=== PATIENT | female | born 1985 ===

== ENCOUNTER 2017-06-20 10:49 | Emergency (ER) | payer OTHER ==
[2017-06-20 11:02] VITALS: TEMP 97.8; O2SAT 97
[2017-06-20] MEDS ORDERED: Sodium Chloride 0.9% 1,000 ML IV STA (11:28)
[2017-06-20 12:09] LABS: URINE BILIRUBIN NEGATIVE (NEGATIVE); URINE BLOOD MODERATE (NEGATIVE); URINE GLUCOSE (UA) NEGATIVE (NEGATIVE); URINE KETONE NEGATIVE (NEGATIVE); URINE LEUKOCYTE ESTERASE NEGATIVE Leu/uL (NEGATIVE); URINE PROTEIN NEGATIVE mg/dL (<30 mg/dL); URINE UROBILINOGEN 0.2 E.U./dL (<1 E.U./dL)
[2017-06-20 12:10] LABS: BASO # 0.01 K/mm3 (0.0-2.0); BASO % 0.1 % (0.0-3.0); EOS # 0.1 (0.0-0.7); EOS % 0.7 % (1.5-5.0); GRAN # 7.09 (1.4-6.5); GRAN % 67.6 % (50.0-68.0); HEMATOCRIT 40.9 % (36.0-48.0); LYMPH # 2.7 (1.2-3.4); MEAN CELL VOLUME 89.7 fl (80.0-105.0); MEAN CORPUSCULAR HEMOGLOBIN 30.3 pg (25.0-35.0); MEAN CORPUSCULAR HGB CONC 33.7 g/dl (31.0-37.0); MEAN PLATELET VOLUME 10.8 fl (7.0-11.0); MONO # 0.6 (0.1-0.6); MONO % 5.6 % (1.0-6.0); RED CELL DISTRIBUTION WIDTH 13.5 % (11.5-14.5); WHITE BLOOD COUNT 10.5 10^3/ul (4.5-11.0)
[2017-06-20 12:11] LABS: URINE APPEARANCE SLIGHT-CLOUDY (CLEAR); URINE COLOR YELLOW (YELLOW)
[2017-06-20 12:16] LABS: URINE BACTERIA MOD (NEG); URINE EPITHELIAL CELLS MANY /hpf (0-5); URINE RBC 0 - 2 /hpf (0-2); URINE WBC 0 - 2 /hpf (0-6)
[2017-06-20 12:17] LABS: INR 1.03 (0.93-1.08); PARTIAL THROMBOPLASTIN TIME 29.7 Seconds (25.1-36.5)
[2017-06-20 12:29] LABS: ALB/GLOB RATIO 1.4 (1.1-1.8); ALKALINE PHOSPHATASE 56 U/L (38-126); ALT/SGPT 32 U/L (7-56); AST/SGOT 22 U/L (14-36); BILIRUBIN,TOTAL 0.5 mg/dL (0.2-1.3); BLOOD UREA NITROGEN 9 mg/dL (7-21); CALCIUM 10.1 mg/dL (8.4-10.5); CARBON DIOXIDE 22 mmol/L (21-33); CHLORIDE 104 mmol/L (98-107); GFR AFRICAN-AMERICAN > 60; GLUCOSE,RANDOM 120 mg/dL (70-110); LIPASE 87 U/L (23-300); POTASSIUM 3.7 mmol/L (3.6-5.0); SODIUM 137 mmol/L (132-148)
--- NOTE | 2017-06-20 12:35 | ED PDOC ---
Arrival/HPI - General Historian: Patient - History of Present Illness Time/Duration: 24 hours Symptom Onset: Sudden Symptom Course: Unchanged Activities at Onset: Rest, Light Context: Home <Javi Vicente - Last Filed: 06/20/17 19:49> <Sunitatremayne Rell - Last Filed: 06/20/17 20:57> - General Chief Complaint: Female Genitourinary Time Seen by Provider: 06/20/17 11:05 - History of Present Illness Narrative History of Present Illness (Text): 06/20/17 12:35 Ms. Ponce is a 32 year old at 7w0d gestation (JENNIFER of 02/06/18 by [facility]DL[facility] of 05/02/17) with no significant past medical history who presents to the [facility] ED with a chief complaint of vaginal bleeding since yesterday. Patient reports that after she went to the bathroom yesterday, she noticed dark red to brown blood on the paper after she wiped and then had a similar episode later yesterday afternoon with red to pink blood on the paper. She also reports that she passed a blood clot measuring approximately 2 cm. She denies any non-bloody vaginal discharge, malodorous discharge, vaginal itching, abdominal cramping, LOF, pain with urination, hematuria, hematochezia, recent sexual intercourse but does endorse urinary frequency. Patient also denies fever, chills, headache , changes in her vision, sore throat, chest pain, SOB, cough, abdominal pain, N/ V/D/C, rashes or any numbness/tingling/weakness. OB History: First Gestation: Miscarriage at 5 weeks gestation Current Gestation: details in HPI Patient has scheduled appointment at [facility] next week for her initial OB visit [employer] History: Triad: 12/regular/4 days Denies history of fibroids, ovarian cysts, history of abnormal pap smears or any personal or family history of breast/uterine/ovarian/vaginal/cervical malignancies (Jvai Vicente) Past Medical History - Provider Review Nursing Documentation Reviewed: Yes - Travel History Have you recently traveled outside [place] w/in the past 3 mons?: No - Past History Past History: No Previous - Infectious Disease Hx of Infectious Diseases: None - Tetanus Immunization Tetanus Immunization: Unknown - Reproductive Menopause: No - Past Medical History Past Medical History: No Previous - Psychiatric Hx Substance Use: No - Surgical History Hx Tonsillectomy: Yes Other/Comment: hernia repair x2 <Javi Vicente - Last Filed: 06/20/17 19:49> Family/Social History - Physician Review Nursing Documentation Reviewed: Yes Family/Social History: No Known Family HX Smoking Status: Never Smoked Hx Alcohol Use: No Hx Substance Use: No Hx Substance Use Treatment: No <Javi Vicente - Last Filed: 06/20/17 19:49> Allergies/Home Meds <Javi Vicente - Last Filed: 06/20/17 19:49> <SunitaRell casper DO - Last Filed: 06/20/17 20:57> Allergies/Adverse Reactions: Allergies No Known Allergies Allergy (Verified 06/20/17 11:02) Review of Systems - Physician Review All systems were reviewed & negative as marked: Yes - Review of Systems Constitutional: Normal. absent: Fevers, Night Sweats Eyes: Normal. absent: Vision Changes ENT: Normal Respiratory: Normal. absent: SOB, Cough Cardiovascular: Normal. absent: Chest Pain, Palpitations Gastrointestinal: Normal. absent: Abdominal Pain, Constipation, Diarrhea, Nausea, Vomiting, Hematochezia Genitourinary Female: Frequency, Vaginal Bleeding (As per HPI). absent: Normal , Dysuria, Hematuria, Vaginal Discharge Musculoskeletal: Normal. absent: Back Pain, Neck Pain Skin: Normal. absent: Rash Neurological: Normal. absent: Headache, Dizziness Endocrine: Normal Hemo/Lymphatic: Normal Psychiatric: Normal <Javi Vicente - Last Filed: 06/20/17 19:49> Physical Exam Vital Signs Reviewed: Yes Temperature: Afebrile Blood Pressure: Normal Pulse: Regular Respiratory Rate: Normal Appearance: Positive for: Well-Appearing, Non-Toxic, Comfortable Pain Distress: None Mental Status: Positive for: Alert and Oriented X 3 - Systems Exam Head: Present: Atraumatic, Normocephalic Pupils: Present: PERRL Extroacular Muscles: Present: EOMI Conjunctiva: Present: Normal Mouth: Present: Moist Mucous Membranes Neck: Present: Normal Range of Motion Respiratory/Chest: Present: Clear to Auscultation, Good Air Exchange. No: Respiratory Distress, Accessory Muscle Use Cardiovascular: Present: Regular Rate and Rhythm, Normal S1, S2, Peripheal Pulses Present. No: Murmurs, Irregular Rhythm, Tachycardic, Bradycardic Abdomen: Present: Normal Bowel Sounds. No: Tenderness, Distention, Peritoneal Signs Back: Present: Normal Inspection. No: CVA Tenderness, Midline Tenderness, Paraspinal Tenderness Upper Extremity: Present: Normal Inspection. No: Cyanosis, Edema Lower Extremity: Present: Normal Inspection. No: Edema Neurological: Present: GCS=15, CN II-XII Intact, Speech Normal Skin: Present: Warm, Dry, Normal Color. No: Rashes Psychiatric: Present: Alert, Oriented x 3, Normal Insight, Normal Concentration <Javi Vicente - Last Filed: 06/20/17 19:49> Vital Signs Temp Pulse Resp BP Pulse Ox 06/20/17 12:50 75 18 113/69 97 06/20/17 10:56 97.8 F 80 16 115/73 97 Medical Decision Making - Lab Interpretations I have reviewed the lab results: Yes Interpretation: All labs normal - RAD Interpretation Phlebotomy Coordinator: Radiologist <Javi Vicente - Last Filed: 06/20/17 19:49> <Rell Orona DO - Last Filed: 06/20/17 20:57> ED Course and Treatment: 06/20/17 12:48 Impression: 32 year old at 7w0d gestation ([facility]ENNIFER [facility] 02/06/18 [facility]) with no significant past medical history who presents to the [facility] ED with a chief complaint of vaginal bleeding since yesterday Plan: -CBC, Coagulation studies, UA -OB US -Reassess and disposition Prior Visits: No previous visits (Javi Vicente) 06/20/17 12:52 Patient Seen With Resident: In agreement with resident note which contains more details about the patient. Patient was seen and evaluated with resident. Came up with plan and treatment together. A 32 year old female who is 7 weeks with no significant past medical history, presents to the emergency department for vaginal bleeding. The patient's treatment plan includes urinalysis, transvaginal ultrasound, POC urine test, and IV fluids. Patient has an appointment with her OBGYN and I encourage the patient to follow through with her appointment. (Rell Orona DO) - Lab Interpretations Lab Results: 06/20/17 11:45 06/20/17 11:45 Lab Results 06/20/17 12:25: Blood Type Confirm O POSITIVE 06/20/17 11:45: Blood Type O POSITIVE, Antibody Screen Negative, BBK History Checked No verified bt 06/20/17 11:45: Beta HCG, Quant [id number] H 06/20/17 11:45: Sodium 137, Potassium 3.7, Chloride 104, Carbon Dioxide 22, Anion Gap 15, BUN 9, Creatinine 0.5 L, Est GFR ( Amer) > 60, Est GFR (Non -Af Amer) > 60, Random Glucose 120 H, Calcium 10.1, Total Bilirubin 0.5, AST 22 , ALT 32, Alkaline Phosphatase 56, Total Protein 8.0, Albumin 4.6, Globulin 3.4 , Albumin/Globulin Ratio 1.4, Lipase 87 06/20/17 11:45: Urine Color Yellow, Urine Appearance Slight-cloudy, Urine pH 7.0 , Ur Specific [place] 1.015, Urine Protein Negative, Urine Glucose (UA) Negative , Urine Ketones Negative, Urine Blood Moderate H, Urine Nitrate Negative, Urine Bilirubin Negative, Urine Urobilinogen 0.2, Ur Leukocyte Esterase Negative, Urine RBC 0 - 2, Urine WBC 0 - 2, Ur Epithelial Cells Many, Urine Bacteria Mod 06/20/17 11:45: PT 11.3, INR 1.03, APTT 29.7 06/20/17 11:45: WBC 10.5, RBC 4.56, Hgb 13.8, Hct 40.9, MCV 89.7, MCH 30.3, MCHC 33.7, RDW 13.5, Plt Count 293, MPV 10.8, Gran % 67.6, Lymph % (Auto) 26.0, [place] % (Auto) 5.6, Eos % (Auto) 0.7 L, Baso % (Auto) 0.1, Gran # 7.09 H, Lymph # 2.7, [place] # 0.6, Eos # 0.1, Baso # 0.01 - RAD Interpretation Radiology Orders: 06/20/17 11:29 OB TRANSVAGINAL [US] Stat - Medication Orders Current Medication Orders: Discontinued Medications Sodium Chloride (Sodium Chloride 0.9%) 1,000 mls @ 1,000 mls/hr IV .Q1H STA Stop: 06/20/17 12:27 Last Admin: 06/20/17 11:54 Dose: 1,000 mls/hr eMAR Start Stop Document 06/20/17 11:54 MS (Rec: 06/20/17 11:55 MS [id number]) Intravenous Solution Start Date 06/20/17 Start Time 11:55 End Date 06/20/17 End time 12:55 Total Infusion Time 60 <Javi Vicente - Last Filed: 06/20/17 19:49> - Scribe Statement The provider has reviewed the documentation as recorded by the Scribe <Rell Orona DO - Last Filed: 06/20/17 20:57> - Scribe Statement Shyanne Carlin Provider Scribe Attestation: All medical record entries made by the Scribe were at my direction and personally dictated by me. I have reviewed the chart and agree that the record accurately reflects my personal performance of the history, physical exam, medical decision making, and the department course for this patient. I have also personally directed, reviewed, and agree with the discharge instructions and disposition. (Rell Orona DO) Disposition/Present on Arrival - Present on Arrival Any Indicators Present on Arrival: No History of DVT/PE: No History of Uncontrolled Diabetes: No Urinary Catheter: No History of Decub. Ulcer: No History Surgical Site Infection Following: None - Disposition Have Diagnosis and Disposition been Completed?: Yes Disposition Time: 13:34 <Javi Vicente - Last Filed: 06/20/17 19:49> - Disposition Disposition Time: 13:15 <Rell Orona DO - Last Filed: 06/20/17 20:57> - Disposition Diagnosis: Vaginal bleeding before 22 weeks gestation Disposition: HOME/ ROUTINE Condition: GOOD Discharge Instructions (ExitCare): Threatened Miscarriage (ED), Pelvic Rest (ED ) Additional Instructions: Thank you for letting us take care of you today. The emergency medical care you received today was directed at your acute symptoms. If you were prescribed any medication, please fill it and take as directed. It may take several days for your symptoms to resolve. Return to the Emergency Department if your symptoms worsen, do not improve, or if you have any other problems. Please contact your doctor or call one of the physicians/clinics you have been referred to that are listed on the Patient Visit Information form that is included in your discharge packet. Bring any paperwork you were given at discharge with you along with any medications you are taking to your follow up visit. Our treatment cannot replace ongoing medical care by a primary care provider (PCP) outside of the emergency department. Thank you for allowing the [facility] team to be part of your care today. Follow up with your [facility] doctor next week for re-evaluation and further management. Prescriptions: Multivit/Folic Acid/I [ Plus] 1 tab PO DAILY #30 tab Referrals: PCP,NO [Primary Care Provider] - Follow up with primary Forms: [employer] ([place])
[2017-06-20 13:19] VITALS: BP 113/69; PULSE 75; RESP 18
--- NOTE | 2017-06-20 16:43 | US ---
PROCEDURE: OB Pelvic Ultrasound HISTORY: vaginal bleeding COMPARISON: None available. FINDINGS: UTERUS: Single Live intrauterine gestation. CRL equivalent to 6 weeks 2 days gestatioin Gestational sac diameter equivalent to 6 weeks 6 days gestation age (Ultrasound estimated): 6 weeks 1 day Date of delivery (Ultrasound estimated) : 02[birth year]2018 Heart rate: 159 bpm. [place]-gestational hemorrhage: None. Uterus measures 7.69 x 5.15 x 5.35 cm. No mass CERVIX: Long and closed. No cervical abnormality seen. RIGHT OVARY: Measures 3.95 x 1.72 x 2.11 cm. No mass. Normal flow. There is a simple cyst measuring 2.25 x 1.28 by 1.25 cm LEFT OVARY: Not seen FREE FLUID: None. OTHER FINDINGS: None. IMPRESSION: Single viable intrauterine with a gestational age of 6 weeks 1 day.
== END 2017-06-20 14:00 | disposition home or self-care (01) ==
LOC: ED 10:49 → MERGE 10:49 → ED 14:00
DX: O46.91 Antepartum hemorrhage, unspecified, first trimester (principal); Z3A.01 Less than 8 weeks gestation of pregnancy
CPT/HCPCS: 76817; 80053; 81001; 83690; 84702; 85025; 85610; 85730; 86850; 86900; 87086; 96360; 99283; J7040

== ENCOUNTER 2017-07-29 00:24 | Emergency (ER) | payer OTHER ==
[2017-07-29 00:38] VITALS: RESP 16; TEMP 98; O2SAT 99
--- NOTE | 2017-07-29 01:02 | ED PDOC ---
Arrival/HPI - General Chief Complaint: Female Genitourinary Time Seen by Provider: 07/29/17 00:44 Historian: Patient - History of Present Illness Narrative History of Present Illness (Text): 07/29/17 00:55 Damaris Ponce is a 32 year old female (A1) at gestation of 12 weeks, with no significant past medical history presents to the Emergency department complaining of vaginal bleeding since 1 hour. Patient states she noticed "red blood" after urination today similar to prior episodes of vaginal bleeding. Patient states she was seen in the Emergency department for similar episode on 06/07/17 and was medically cleared. Patient denies any non-bloody vaginal discharge, malodorous discharge, vaginal itching, abdominal cramping, LOF, pain with urination, hematuria, hemaochezia, recent sexual intercourse, chest pain, abdominal pain, shortness of breath, nausea, vomiting, fever, chills, trauma or any other complaints. Time/Duration: 1 hour Symptom Onset: Gradual Symptom Course: Unchanged Activities at Onset: Light Context: Home Past Medical History - Provider Review Nursing Documentation Reviewed: Yes - Past History Past History: No Previous - Infectious Disease Hx of Infectious Diseases: None - Tetanus Immunization Tetanus Immunization: Unknown - Past Medical History Past Medical History: No Previous - HEENT Hx HEENT Disorder: Yes Other/Comment: BILATERAL LASIK CORRECTION - Hematological/Oncological Hx Anemia: Yes - Psychiatric Hx Substance Use: No - Surgical History Hx Tonsillectomy: Yes Other/Comment: hernia repair x2 - Anesthesia Hx Anesthesia: Yes Hx Anesthesia Reactions: No Family/Social History - Physician Review Nursing Documentation Reviewed: Yes Family/Social History: Unknown Family HX Smoking Status: Never Smoked Hx Alcohol Use: No Hx Substance Use: No Hx Substance Use Treatment: No Allergies/Home Meds Allergies/Adverse Reactions: Allergies No Known Allergies Allergy (Verified 07/29/17 00:38) Home Medications: Home Meds Medication Instructions Recorded Confirmed Folic Acid 1 mg PO DAILY 11/19/15 07/29/17 Review of Systems - Physician Review All systems were reviewed & negative as marked: Yes - Review of Systems Constitutional: Normal. absent: Fevers Eyes: Normal ENT: Normal Respiratory: Normal. absent: SOB Cardiovascular: Normal. absent: Chest Pain Gastrointestinal: Normal. absent: Abdominal Pain, Diarrhea, Nausea, Vomiting Genitourinary Female: Vaginal Bleeding. absent: Dysuria, Hematuria, Vaginal Discharge Musculoskeletal: Normal Skin: Normal Neurological: Normal Endocrine: Normal Hemo/Lymphatic: Normal Psychiatric: Normal Physical Exam Vital Signs Reviewed: Yes Vital Signs Temp Pulse Resp BP Pulse Ox 07/29/17 00:35 98.0 F 83 16 105/55 L 99 Temperature: Afebrile Blood Pressure: Normal Pulse: Regular Respiratory Rate: Normal Appearance: Positive for: Well-Appearing, Non-Toxic, Comfortable Pain Distress: None Mental Status: Positive for: Alert and Oriented X 3 - Systems Exam Head: Present: Atraumatic, Normocephalic Pupils: Present: PERRL Extroacular Muscles: Present: EOMI Conjunctiva: Present: Normal Mouth: Present: Moist Mucous Membranes Neck: Present: Normal Range of Motion Respiratory/Chest: Present: Clear to Auscultation, Good Air Exchange. No: Respiratory Distress, Accessory Muscle Use Cardiovascular: Present: Regular Rate and Rhythm, Normal S1, S2. No: Murmurs Abdomen: Present: Normal Bowel Sounds. No: Tenderness, Distention, Peritoneal Signs Genitourinary/Pelvic Exam: Present: Normal External Genitalia, Vaginal Bleeding (Minimally dark around vaginal vault. No clots or active bleeding. ), Cervical os Closed, Other (nontender and no palpable masses. ). No: Adenexal Tenderness , Adenexal Mass Back: Present: Normal Inspection Upper Extremity: Present: Normal Inspection. No: Cyanosis, Edema Lower Extremity: Present: Normal Inspection. No: Edema Neurological: Present: GCS=15, CN II-XII Intact, Speech Normal Skin: Present: Warm, Dry, Normal Color. No: Rashes Psychiatric: Present: Alert, Oriented x 3, Normal Insight, Normal Concentration Medical Decision Making ED Course and Treatment: 07/29/17 01:05 Impression: 32 year old female presents to the Emergency department complaining of vaginal bleeding. Plan: -- Labs -- Transvaginal US -- Reassess and disposition Prior Visits: Notes and results from previous visits were reviewed. On 06/20/17 patient presented to the Emergency department complaining of vaginal bleeding. Patient was discharged home after good condition. Progress Notes: - Lab Interpretations Lab Results: 07/29/17 01:40 Lab Results 07/29/17 01:40: WBC 11.0 D, RBC 4.03, Hgb 12.1, Hct 35.4 L, MCV 87.8, MCH 30.0 , MCHC 34.2, RDW 13.3, Plt Count 261, MPV 10.8, Gran % 64.9, Lymph % (Auto) 25.6 , [place] % (Auto) 7.1 H, Eos % (Auto) 2.3, Baso % (Auto) 0.1, Gran # 7.14 H, Lymph # 2.8, [place] # 0.8 H, Eos # 0.3, Baso # 0.01 - RAD Interpretation Radiology Orders: 07/29/17 00:56 OB TRANSVAGINAL [US] Stat - Scribe Statement The provider has reviewed the documentation as recorded by the Scribe Alfredo Schaefer. All medical record entries made by the Scribe were at my direction and personally dictated by me. I have reviewed the chart and agree that the record accurately reflects my personal performance of the history, physical exam, medical decision making, and the department course for this patient. I have also personally directed, reviewed, and agree with the discharge instructions and disposition. Disposition/Present on Arrival - Present on Arrival Any Indicators Present on Arrival: No History of DVT/PE: No History of Uncontrolled Diabetes: No Urinary Catheter: No History of Decub. Ulcer: No History Surgical Site Infection Following: None - Disposition Have Diagnosis and Disposition been Completed?: Yes Diagnosis: Threatened miscarriage Disposition: HOME/ ROUTINE Disposition Time: 05:15 Patient Plan: Discharge Condition: STABLE Additional Instructions: SEE YOUR OB THIS WEEK Forms: [employer] (Hungarian)
[2017-07-29 01:54] LABS: BASO # 0.01 K/mm3 (0.0-2.0); BASO % 0.1 % (0.0-3.0); EOS # 0.3 (0.0-0.7); EOS % 2.3 % (1.5-5.0); GRAN # 7.14 (1.4-6.5); GRAN % 64.9 % (50.0-68.0); HEMOGLOBIN 12.1 g/dL (12.0-16.0); LYMPH # 2.8 (1.2-3.4); LYMPH % 25.6 % (22.0-35.0); MEAN CELL VOLUME 87.8 fl (80.0-105.0); MEAN CORPUSCULAR HGB CONC 34.2 g/dl (31.0-37.0); MEAN PLATELET VOLUME 10.8 fl (7.0-11.0); MONO # 0.8 (0.1-0.6); MONO % 7.1 % (1.0-6.0); RBC 4.03 10^6/uL (3.5-6.1); RED CELL DISTRIBUTION WIDTH 13.3 % (11.5-14.5)
--- NOTE | 2017-07-29 04:27 | US ---
EXAM: US First Trimester, Transabdominal CLINICAL HISTORY: 32 years old, female; Pain; complicated by abdominal or pelvic pain; Lower; First trimester; Gestational age or lmp: 12weeks; ; Additional info: 12 week preg bleeding TECHNIQUE: Real-time transabdominal obstetrical ultrasound of the maternal pelvis and a first trimester with image documentation. COMPARISON: US - OB TRANSVAGINAL 2017-06-20 12:21 FINDINGS: Gestation: Single live intrauterine gestation. heart rate of 163 beats per minute. [place]-rump length of 5.53 cm, correlating with gestational age of 12 weeks 1 day. Biparietal diameter of 1.80 cm, correlating with gestational age of 12 weeks 5 days. Uterus/cervix: No subchorionic hemorrhage. No cervical dilatation or effacement. Ovaries: RIGHT ovary: Normal. LEFT ovary: Not visualized. No adnexal masses. Free fluid: No significant free fluid. IMPRESSION: 1. Single live intrauterine gestation. EXAM: US , Transvaginal CLINICAL HISTORY: 32 years old, female; Pain; complicated by abdominal or pelvic pain; Lower; First trimester; Gestational age or lmp: 12weeks; ; Additional info: 12 week preg bleeding TECHNIQUE: Real-time transvaginal obstetrical ultrasound of the maternal pelvis and a first trimester with image documentation. Transvaginal imaging was used for better evaluation of the fetus and adnexa. COMPARISON: US - OB TRANSVAGINAL 2017-06-20 12:21 FINDINGS: Gestation: Single live intrauterine gestation. heart rate of 163 beats per minute. [place]-rump length of 5.53 cm, correlating with gestational age of 12 weeks 1 day. Biparietal diameter of 1.80 cm, correlating with gestational age of 12 weeks 5 days. Uterus/cervix: No subchorionic hemorrhage. No cervical dilatation or effacement. Ovaries: RIGHT ovary: Normal. LEFT ovary: Not visualized. No adnexal masses. Free fluid: No significant free fluid.
[2017-07-29 06:42] VITALS: BP 115/68; PULSE 79
== END 2017-07-29 05:25 | disposition home or self-care (01) ==
LOC: ED 00:24
DX: O20.0 Threatened abortion (principal); Z3A.12 12 weeks gestation of pregnancy

== ENCOUNTER 2017-08-12 19:37 | Emergency (ER) | payer OTHER ==
[2017-08-12 20:40] VITALS: RESP 18; TEMP 99.1; O2SAT 100
[2017-08-12] MEDS ORDERED: Sodium Chloride 0.9% 1,000 ML IV STA (20:46)
--- NOTE | 2017-08-12 20:49 | ED PDOC ---
Arrival/HPI - General Chief Complaint: Abdominal Pain Time Seen by Provider: 08/12/17 20:38 Historian: Patient - History of Present Illness Narrative History of Present Illness (Text): 08/12/17 20:46 32yo female who present with complaint of epigastric abdominal pain since this morning. She describes pain as burning in nature. Notes 4episodes of vomiting today. States she is currently 14weeks and have vomited twice since she became . She otherwise denies vaginal bleeding, fever, chills , any other complaint. Past Medical History - Provider Review Nursing Documentation Reviewed: Yes - Past History Past History: No Previous - Infectious Disease Hx of Infectious Diseases: None - Tetanus Immunization Tetanus Immunization: Unknown - Past Medical History Past Medical History: No Previous - HEENT Hx HEENT Disorder: Yes Other/Comment: BILATERAL LASIK CORRECTION - Hematological/Oncological Hx Anemia: Yes - Psychiatric Hx Substance Use: No - Surgical History Hx Eye Surgery: Yes (bilateral laser) Hx Tonsillectomy: Yes Other/Comment: hernia repair x2 - Anesthesia Hx Anesthesia: Yes Hx Anesthesia Reactions: No Family/Social History - Physician Review Nursing Documentation Reviewed: Yes Family/Social History: Unknown Family HX Smoking Status: Never Smoked Hx Alcohol Use: No Hx Substance Use: No Hx Substance Use Treatment: No Allergies/Home Meds Allergies/Adverse Reactions: Allergies No Known Allergies Allergy (Verified 08/12/17 20:40) Home Medications: Home Meds Medication Instructions Recorded Confirmed Folic Acid 1 mg PO DAILY 11/19/15 08/12/17 Review of Systems - Physician Review All systems were reviewed & negative as marked: Yes - Review of Systems Constitutional: Normal Eyes: Normal ENT: Normal Respiratory: Normal Cardiovascular: Normal Gastrointestinal: Abdominal Pain, Nausea, Vomiting. absent: Constipation, Diarrhea, Hematochezia, Hematemesis Genitourinary Female: Normal Musculoskeletal: Normal Skin: Normal Neurological: Normal Endocrine: Normal Hemo/Lymphatic: Normal Psychiatric: Normal Physical Exam Vital Signs Reviewed: Yes Vital Signs Temp Pulse Resp BP Pulse Ox 08/12/17 20:37 99.1 F 78 18 113/77 100 Temperature: Afebrile Blood Pressure: Normal Pulse: Regular Respiratory Rate: Normal Appearance: Positive for: Well-Appearing, Non-Toxic, Comfortable Pain Distress: None Mental Status: Positive for: Alert and Oriented X 3 - Systems Exam Head: Present: Atraumatic, Normocephalic Pupils: Present: PERRL Extroacular Muscles: Present: EOMI Conjunctiva: Present: Normal Mouth: Present: Moist Mucous Membranes Neck: Present: Normal Range of Motion Respiratory/Chest: Present: Clear to Auscultation, Good Air Exchange. No: Respiratory Distress, Accessory Muscle Use Cardiovascular: Present: Regular Rate and Rhythm, Normal S1, S2. No: Murmurs Abdomen: Present: Normal Bowel Sounds, Other (Soft). No: Tenderness, Distention , Peritoneal Signs, Rebound, Guarding, McBurney's Point Tender, Rovsing's Sign Present Back: Present: Normal Inspection Upper Extremity: Present: Normal Inspection. No: Cyanosis, Edema Lower Extremity: Present: Normal Inspection. No: Edema Neurological: Present: GCS=15, CN II-XII Intact, Speech Normal Skin: Present: Warm, Dry, Normal Color. No: Rashes Psychiatric: Present: Alert, Oriented x 3, Normal Insight, Normal Concentration Medical Decision Making ED Course and Treatment: 08/13/17 01:09 PT in Emergency department for states history. Her pain improved in Emergency department on re evaluation. Leukocytosis was noted, this is likely secondary to Vs enteritis. PT's epigastic pain sounds more like GERD . No LFT or Alk phos abnormality. Gallbladder US was however ordered secondary to pt' complain and leukocytosis to r/o cholecysitis. Gallbladder US MPRESSION: 1. 6 mm gallbladder polyp. 2. No gallstones. 3. Remainder of findings as above. Age US Impression: Single intrauterine with cardiac activity at approximately 14 weeks 2 days menstrual age. Result was DW the pt. She have OB and was strongly advised to f/u with her OB. - Lab Interpretations Lab Results: 08/12/17 21:48 08/12/17 21:48 Lab Results 08/12/17 21:48: Sodium 129 L, Potassium 3.4 L, Chloride 96 L, Carbon Dioxide 22 , Anion Gap 14, BUN 5 L, Creatinine 0.4 L, Est GFR ( Amer) > 60, Est GFR (Non-Af Amer) > 60, Random Glucose 82, Calcium 9.6, Total Bilirubin 0.4, AST 22 , ALT 25, Alkaline Phosphatase 57, Total Protein 7.3, Albumin 4.0, Globulin 3.3 , Albumin/Globulin Ratio 1.2, Lipase 49 08/12/17 21:48: PT 11.3, INR 0.99, APTT 28.9 08/12/17 21:48: WBC 17.5 H D, RBC 4.38, Hgb 13.3, Hct 39.1, MCV 89.3, MCH 30.4, MCHC 34.0, RDW 13.6, Plt Count 256, MPV 11.2 H, Gran % 84.9 H, Lymph % (Auto) 10.5 L, [place] % (Auto) 4.4, Eos % (Auto) 0.1 L, Baso % (Auto) 0.1, Gran # 14.84 H , Lymph # 1.8, [place] # 0.8 H, Eos # 0.0, Baso # 0.01 - RAD Interpretation Radiology Orders: 08/12/17 23:17 GALLBLADDER & COMMON DUCT [US] Stat 08/12/17 23:19 AGE [US] Stat - Medication Orders Current Medication Orders: Discontinued Medications Famotidine (Pepcid) 20 mg IVP STAT STA Stop: 08/12/17 20:47 Last Admin: 08/12/17 21:52 Dose: 20 mg IVP Administration Document 08/12/17 21:52 OCS (Rec: 08/12/17 21:52 OCS [facility] [id number]) Charges for Administration # of IVP Administrations 1 Sodium Chloride (Sodium Chloride 0.9%) 1,000 mls @ 1,000 mls/hr IV .Q1H STA Stop: 08/12/17 21:45 Last Admin: 08/12/17 21:52 Dose: 1,000 mls/hr eMAR Start Stop Document 08/12/17 21:52 OCS (Rec: 08/12/17 21:52 OCS [facility] [id number]) Intravenous Solution Start Date 08/12/17 Start Time 21:52 End Date 08/12/17 End time 22:52 Total Infusion Time 60 Disposition/Present on Arrival - Present on Arrival Any Indicators Present on Arrival: No History of DVT/PE: No History of Uncontrolled Diabetes: No Urinary Catheter: No History of Decub. Ulcer: No History Surgical Site Infection Following: None - Disposition Have Diagnosis and Disposition been Completed?: Yes Diagnosis: Abdominal pain during Disposition: HOME/ ROUTINE Disposition Time: :10 Patient Plan: Discharge Patient Problems: Current Active Problems Problem Status Onset Abdominal pain during Acute Condition: STABLE Discharge Instructions (ExitCare): Abdominal Pain in (ED) Additional Instructions: Follow up with your OB Return to Emergency department for any new or worsening symptoms Referrals: PCP,AKOSUA [Primary Care Provider] - Follow up with primary [facility] [Outside] - Follow up with primary Deborah Price MD [Staff Provider] - Follow up with primary Forms: [employer] (Indonesian)
[2017-08-12 22:07] LABS: BASO # 0.01 K/mm3 (0.0-2.0); BASO % 0.1 % (0.0-3.0); EOS % 0.1 % (1.5-5.0); GRAN # 14.84 (1.4-6.5); GRAN % 84.9 % (50.0-68.0); HEMOGLOBIN 13.3 g/dL (12.0-16.0); LYMPH # 1.8 (1.2-3.4); LYMPH % 10.5 % (22.0-35.0); MEAN CELL VOLUME 89.3 fl (80.0-105.0); MEAN CORPUSCULAR HEMOGLOBIN 30.4 pg (25.0-35.0); MEAN PLATELET VOLUME 11.2 fl (7.0-11.0); MONO # 0.8 (0.1-0.6); MONO % 4.4 % (1.0-6.0); RBC 4.38 10^6/uL (3.5-6.1); RED CELL DISTRIBUTION WIDTH 13.6 % (11.5-14.5); WHITE BLOOD COUNT 17.5 10^3/ul (4.5-11.0)
[2017-08-12 22:20] LABS: ALB/GLOB RATIO 1.2 (1.1-1.8); ALT/SGPT 25 U/L (7-56); AST/SGOT 22 U/L (14-36); BLOOD UREA NITROGEN 5 mg/dL (7-21); CALCIUM 9.6 mg/dL (8.4-10.5); GFR AFRICAN-AMERICAN > 60; GFR NON-AFRICAN AMERICAN > 60; LIPASE 49 U/L (23-300)
[2017-08-12 22:21] LABS: INR 0.99 (0.93-1.08); PARTIAL THROMBOPLASTIN TIME 28.9 Seconds (25.1-36.5); PROTHROMBIN TIME 11.3 SECONDS (9.4-12.5)
--- NOTE | 2017-08-13 00:59 | US ---
History: 32 years old, female; Pain; Other: Abd pain; Gestational age or lmp: 04/28/17; ; Additional info: Abdominal pain Gender: female Age: 32 years Exam: US TRANSABD AFTER FIRST TRIMESTER FIRST GEST Comparison: None Real-time ultrasound examination of the gravid uterus was performed. Single intrauterine gestational sac. Estimated menstrual age 14 weeks 2 days. Cardiac activity noted with a heart rate of 152 beats per minute. motion noted. Current presentation is cerebral. The placenta is fundal and free of the hospital. Amniotic fluid appears appropriate. No free fluid in the pelvis. Right ovary measures 2.6 x 1.4 x 2.6 CM. Left ovary is not visualized. Impression: Single intrauterine with cardiac activity at approximately 14 weeks 2 days menstrual age.
--- NOTE | 2017-08-13 01:01 | US ---
EXAM: US Abdomen Limited, Right Upper Quadrant CLINICAL HISTORY: 32 years old, female; Pain; Abdominal pain; Epigastric; ; Additional info: Epigastric pain TECHNIQUE: Real-time ultrasound of the right upper quadrant with image documentation. COMPARISON: No relevant prior studies available. FINDINGS: Liver: Liver measures 13.2 CM longitudinally. No intrahepatic bile duct dilation. Gallbladder: Gallbladder wall measures 2 mm in thickness. No sonographic Avalos's sign. 6 mm polyp. No gallstones. Common bile duct: Common bile duct measures 3.3 mm in diameter. No stones. No dilation. Pancreas: Unremarkable as visualized. Right kidney: Right kidney measures 10.1 CM longitudinally. No stones. No hydronephrosis. IMPRESSION: 1. 6 mm gallbladder polyp. 2. No gallstones. 3. Remainder of findings as above.
[2017-08-13 05:01] VITALS: BP 128/74; PULSE 78
== END 2017-08-13 01:30 | disposition home or self-care (01) ==
LOC: ED 19:37
DX: O26.91 Pregnancy related conditions, unspecified, first trimester (principal); R10.9 Unspecified abdominal pain; Z3A.14 14 weeks gestation of pregnancy
CPT/HCPCS: 76705; 76815; 80053; 83690; 85025; 85610; 85730; 96361; 96374; 99284; J7040

== ENCOUNTER 2017-10-05 10:26 | Emergency (ER) | payer OTHER ==
[2017-10-05 10:51] VITALS: TEMP 98.1; BMI 21.2
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
--- NOTE | 2017-10-05 13:02 | US ---
PROCEDURE: ultrasound HISTORY: trauma COMPARISON: 08/13/2017, 07/29/2017 serial ultrasound studies. TECHNIQUE: Standard protocol for this study/examination. FINDINGS: Age at diagnosis: presentation. Fundal Placenta. No evidence of abruption or previa Gestational age derived from LMP 23 weeks Gestational age derived from the following biometric parameters 22 weeks JENNIFER based on LMP: 02/01/2018 JENNIFER based on biometry: 02/08/2018 Biparietal diameter 5.23 cm Head [id number] cm Abdominal circumference 17.61 cm Femur length 3.74 cm Estimated weight 43.7 g Calculated cardiac rate 147 beats per min. Closed cervix measuring 4.6 cm IMPRESSION: Twenty-two weeks live intrauterine gestation. Gestational concordance documented. Adequate interval progression compared to the prior study.
[2017-10-05 13:19] VITALS: BP 105/58; PULSE 81; RESP 18; O2SAT 100
== END 2017-10-05 13:37 | disposition home or self-care (01) ==
LOC: ED 10:26
DX: S30.1XXA Contusion of abdominal wall, initial encounter (principal); W51.XXXA Accidental striking against or bumped into by another person, initial encounter; Y92.89 Other specified places as the place of occurrence of the external cause; O26.92 Pregnancy related conditions, unspecified, second trimester; Z3A.22 22 weeks gestation of pregnancy